=== PATIENT | female | born 1985 | race Hispanic/Latino ===

== ENCOUNTER 2018-01-24 08:37 | Outpatient (CLI) | payer BC ==
[2018-01-24 09:50] LABS: #Eosinphils 0.1 thou/uL (0.0-0.7); #Lymphocytes 1.9 thou/uL (1.20-3.40); #Monocytes 0.4 thou/uL (0.11-0.59); #Neutrophils 4.6 thou/uL (1.40-6.50); %Basophils 0.6 % (0.0-1.0); %Eosinophils 1.6 % (0.0-10.0); %Monocytes 5.8 % (0.0-10.0); %Neutrophils 65.1 % (42.0-75.0); Hemoglobin 13.7 g/dL (12.0-16.0); Mean Corpuscular HGB CONC 35.7 g/dL (32.0-36.0); Mean Corpuscular Hemoglobin 33.7 pg (27.0-31.0); Mean Corpuscular Volume 94.3 fL (78.0-98.0); Mean Platelet Volume 7.4 fL (7.4-10.4); Platelet Count 227 thou/uL (130-400); RBC Distribution Width 11.4 % (11.5-14.5); Red Blood Cell (RBC) Count 4.05 mill/uL (4.20-5.40); White Blood Cell (WBC) Count 7.1 thou/uL (4.8-10.8)
[2018-01-24 10:53] LABS: BHCG - Serum Negative (NEGATIVE); Pregs Control Background? CLEAR/WHITE (CLR/WHITE); Pregs Control Bar Appear? YES (CONTROL BAR)
== END 2018-01-24 08:38 | disposition home or self-care (01) ==
LOC: LABBT 08:37
PROVIDERS: ATTEND Orthopaedic Surgery Hand Surgery
DX: Z01.812 Encounter for preprocedural laboratory examination (principal); S66.022A Laceration of long flexor muscle, fascia and tendon of left thumb at wrist and hand level, initial encounter; S64.32XA Injury of digital nerve of left thumb, initial encounter
CPT/HCPCS: 84703; 85025

== ENCOUNTER → 2018-01-30 | Day surgery (SDC) | payer BC ==
[2018-01-24 08:54] VITALS: BMI 34.4
[~2018-01-30] MED LIST: Bacitracin Zinc Ointment 30 gm TUBE ONE; Betamet Acet/Betamet Na Ph 30 MG/5 ML VIAL ONE; Bupivacaine PF 0.5% 30 ML VIAL ONE; CEFAZOLIN/Water 2 GM/20 ML SYRINGE ONE; Fentanyl 100 MCG/2 ML VIAL ONE; Ketorolac Tromethamine 30 MG/ML VIAL ONE; Lidocaine 1% PF 5 ML VIAL ONE; Midazolam HCl 2 mg/2 ml Vial ONE; Ondansetron HCl/PF 4 MG/2 ML Vial ONE; PROPOFOL 20 ML ONE; PROPOFOL 200 MG/20 ML VIAL ONE
--- NOTE | 2018-01-31 14:30 | OP ---
DATE OF PROCEDURE: 01/30/2018 PREOPERATIVE DIAGNOSIS: Left fifth pollicis longus laceration. POSTOPERATIVE DIAGNOSES: 1. Left fifth pollicis longus laceration 100% with retraction into the palm inside the carpal canal with a hematoma trail. 2. Left thumb digital nerve laceration, radial and ulnar with ulnar arterial circulation intact. COMPLICATIONS: None. PROCEDURES PERFORMED: 1. Left thumb wound debridement with removal of hematoma. 2. Left thumb digital nerve microscopic repair, radial digital nerve. 3. Left thumb microscopic digital nerve repair, ulnar digital nerve. 4. Left hand carpal tunnel release and retrieval of tendon, retract the flexor pollicis longus. 5. Left thumb flexor pollicis longus repair, using Gerber-Curtis technique, suture technique, 8 strands w ith 6-0 Prolene peritendinous. INDICATIONS: The patient almost now 2-1/2 weeks since laceration secondary to glass from a broken ca ke plate, glass causing the injury. She had numbness and tingling in both sides with diminished 2-po int discrimination and totally absent FPL function. Warned the patient that because of the length of the injury, the surgery was more difficult and was v gary high probability that the flexor pollicus longus had now retracted back into the carpal tunnel. This required additional incision. DESCRIPTION OF PROCEDURE: After successful general LMA technique, we gave the patient 20 mL 0.5% Mar marley to augment the thumb, metacarpal as well as the carpal canal in case we had to retrieve from he re. We then exsanguinated the limb, inflated tourniquet to 250 mmHg pressure, finished timeout after prepping and draping. The patient's transverse laceration was at the level just distal to the A1 pu lley and then we extended in a zigzag Leighton fashion distally 2 cm and proximally 1.5 cm. We carried this through the skin and subcutaneous tissue. Immediately saw the digital nerves, both lacerated w ith some retraction of the larger ulnar digital nerve and out of the radial digital nerve. Then, we saw the flexor longus tendon laceration where it was cut between the A4 deanne and A1 deanne and obli que deanne. The proximal stump was not visible. We attempted multiple times with flexed wrist, exte nded wrist, flexed wrist and digit flexion, flexed wrist and digit extension to retrieve the tendon w ith multiple tendon passes, but could not achieve it. For this reason, we then made a separate 2.5 c m incisions over the carpal tunnel, made a carpal tunnel release, open the transcarpal ligament. The n, we saw the hematoma, which was evacuated and at the base of hematoma with flexor pollicis longus t endon. We then placed a small, sharp Yomi suture with a 4-0 Prolene, placed in the canal from the thumb wound into the carpal tunnel. A [employer] curved tendon passer grabbed the suture and brought t his into the wound. There was some interference with the deanne, but we were able to work underneath it. We then used a Andreas needle to secure this and began our repair. A 4-0 looped suture was then brought to the field, and on the distal stump radial ulnar aspect, we pl aced the suture and then on the proximal stump ulnar aspect, we placed the mid proximal stump radial aspect, we placed the second suture in the usual standard Mayes-Curtis technique to repair this area. Be fore we were able to tying the sutures at all, we then completed a running epitenon suture with 6-0 P rolene. That helped to make the edges more aligned and then we tied the complete the Mayes-Curtis suture with undo knot formation. The patient then had the sutures cut, we placed the thumb from entire ran ge of motion from 45-50 degrees IP joint, 50 degrees MP joint flexion and hyperextension of 20 degree s at the interphalangeal joint. There was no gap formation or catching on the deanne system. We then brought the microscope into the field. We gently debrided as we had the tendon before repair . The edges of the digital nerves and the radial digital nerve was 80% lacerated with a small 20% ra dial edge intact and the ulnar digital nerve was lacerated with a 2 cm retraction. We freshened up 1 mm of the partial tear and a complete 1 mm either side complete tear and began repair first using an 8-0 nylon for the ulnar side, which gave an excellent apposition, it did not have gap formation afte r 5 sutures with the thumb even in hyperextension at the IPJ. There was no gap formation seen at thi s point in the repair of the tendon as well. Then, the patient had the same repair done on the radia l digital nerve and again there was no gap formation here. We released the tourniquet and achieved hemostasis. We then closed the wound using interrupted 4-0 n ylon in a simple pattern except for the carpal tunnel incision, which was closed after hemostasis wit h a 4-0 nylon interrupted mattress pattern. The patient left the operating room with a bulky dressin g applied, pink thumb and index finger with less than or equal to 1 second capillary refill, a long a rm ulnar gutter splint and a radial thumb splint that holds the thumb in flexed position.
== END ==
LOC: SDC 11:37
PROVIDERS: ATTEND Orthopaedic Surgery Hand Surgery
PROC: 01Q60ZZ Repair Radial Nerve, Open Approach (ICD-10-PCS; principal; 2018-01-30)
PROC: 01Q40ZZ Repair Ulnar Nerve, Open Approach (ICD-10-PCS; principal; 2018-01-30)
PROC: 0LM80ZZ Reattachment of Left Hand Tendon, Open Approach (ICD-10-PCS; principal; 2018-01-30)
DX: S66.022A Laceration of long flexor muscle, fascia and tendon of left thumb at wrist and hand level, initial encounter (principal); S64.32XA Injury of digital nerve of left thumb, initial encounter; S60.211A Contusion of right wrist, initial encounter; Z79.2 Long term (current) use of antibiotics; W25.XXXA Contact with sharp glass, initial encounter
CPT/HCPCS: 96372; J0702; J1885; J2250; J2704; J3010; J3490; S0020

== ENCOUNTER 2021-10-07 08:45 | Outpatient (CLI) | payer BC | END 2021-10-07 08:46 | disposition home or self-care (01) | LOC: BICULT 08:45 | PROVIDERS: ATTEND Otolaryngology Plastic Surgery within the Head & Neck | DX: E04.2 Nontoxic multinodular goiter (principal) | CPT/HCPCS: 76536 ==

== ENCOUNTER 2022-01-14 11:50 | Outpatient (CLI) | payer BC ==
[2022-01-14 12:23] LABS: BHCG - Serum Negative (NEGATIVE); Pregs Control Background? CLEAR/WHITE (CLR/WHITE); Pregs Control Bar Appear? YES (CONTROL BAR)
== END 2022-01-14 11:51 | disposition home or self-care (01) ==
LOC: NM 11:50
PROVIDERS: ATTEND Internal Medicine Endocrinology, Diabetes & Metabolism
DX: C73 Malignant neoplasm of thyroid gland (principal)
CPT/HCPCS: 79005; 84703; A9517

== ENCOUNTER 2022-01-24 13:25 | Outpatient (CLI) | payer BC | END 2022-01-24 13:26 | disposition home or self-care (01) | LOC: NM 13:25 | PROVIDERS: ATTEND Internal Medicine Endocrinology, Diabetes & Metabolism | DX: C73 Malignant neoplasm of thyroid gland (principal) | CPT/HCPCS: 78018 ==

== ENCOUNTER 2022-02-10 08:03 | Outpatient (CLI) | payer BC | END 2022-02-10 08:04 | disposition home or self-care (01) | LOC: BICCT 08:03 | PROVIDERS: ATTEND Internal Medicine Endocrinology, Diabetes & Metabolism | DX: C73 Malignant neoplasm of thyroid gland (principal); J35.8 Other chronic diseases of tonsils and adenoids | CPT/HCPCS: 70470; 70491 ==

== ENCOUNTER 2022-06-30 11:52 | Outpatient (CLI) | payer BC ==
[2022-06-30 12:16] LABS: BHCG - Serum Negative (NEGATIVE); Pregs Control Background? CLEAR/WHITE (CLR/WHITE); Pregs Control Bar Appear? YES (CONTROL BAR)
== END 2022-06-30 11:53 | disposition home or self-care (01) ==
LOC: NM 11:52
PROVIDERS: ATTEND Internal Medicine Endocrinology, Diabetes & Metabolism
DX: C73 Malignant neoplasm of thyroid gland (principal)
CPT/HCPCS: 36415; 79005; 84703; A9517

== ENCOUNTER 2022-07-11 14:38 | Outpatient (CLI) | payer BC | END 2022-07-11 14:39 | disposition home or self-care (01) | LOC: NM 14:38 | PROVIDERS: ATTEND Internal Medicine Endocrinology, Diabetes & Metabolism | DX: C73 Malignant neoplasm of thyroid gland (principal) | CPT/HCPCS: 78018 ==

== ENCOUNTER 2023-08-28 11:45 | Outpatient (CLI) | payer BC | END 2023-08-28 11:46 | disposition home or self-care (01) | LOC: PET 11:45 | PROVIDERS: ATTEND Internal Medicine Endocrinology, Diabetes & Metabolism | DX: Z08 Encounter for follow-up examination after completed treatment for malignant neoplasm (principal); E89.0 Postprocedural hypothyroidism; Z85.850 Personal history of malignant neoplasm of thyroid | CPT/HCPCS: 78815; A9552 ==